=== PATIENT | male | born 1940 | race Caucasian/White ===

== ENCOUNTER → 2023-11-11 16:35 | Outpatient (REF) | payer MEDICARE, SELFPAY ==
[2023-11-11 17:48] LABS: PT 29.1 Sec (11.4-14.6)
[2023-11-11 17:49] LABS: APTT 48.3 Sec (23.4-35.0)
== END ==
LOC: REG 16:35
PROVIDERS: ATTENDING PHYSICIAN Internal Medicine Interventional Cardiology
DX: I48.91 Unspecified atrial fibrillation (principal); Z79.01 Long term (current) use of anticoagulants
CPT/HCPCS: 36415; 85610; 85730

== ENCOUNTER → 2023-12-08 15:26 | Outpatient (REF) | payer MEDICARE, SELFPAY ==
[2023-12-08 16:39] LABS: INR 3.24; PT 33.1 Sec (11.4-14.6)
== END ==
LOC: REG 15:26
PROVIDERS: ATTENDING PHYSICIAN Internal Medicine Interventional Cardiology
DX: I48.91 Unspecified atrial fibrillation (principal); Z79.01 Long term (current) use of anticoagulants
CPT/HCPCS: 36415; 85610; 85730

== ENCOUNTER → 2024-01-11 11:12 | Outpatient (REF) | payer MEDICARE, SELFPAY ==
[2024-01-11 11:59] LABS: PT 31.1 Sec (11.4-14.6)
[2024-01-11 12:00] LABS: APTT 49.8 Sec (23.4-35.0)
== END ==
LOC: REG 11:12
PROVIDERS: ATTENDING PHYSICIAN Internal Medicine Interventional Cardiology
DX: I48.91 Unspecified atrial fibrillation (principal); Z79.01 Long term (current) use of anticoagulants
CPT/HCPCS: 36415; 85610; 85730

== ENCOUNTER 2024-01-12 15:01 | Observation (INO) | payer MEDICARE, SELFPAY ==
[2024-01-12] VITALS (10 sets, daily range): BP systolic 132–174; BP diastolic 73–106; BMI 26.9
--- NOTE | 2024-01-12 09:08 | ED.GENMED ---
History of Present Illness
General
Chief Complaint: Fall
Time Seen by Provider: 01/12/24 08:54
History of Present Illness
History of Present Illness:
Patient is a 83-year-old male with history of dementia, A-fib, aortic valve replacement on Coumadin presenting to the emergency department with a fall. Per medics patient had a fall this morning. He was complaining of back pain. However patient
is uncooperative and agitated towards EMS so a limited history. is at bedside provides most of the history. She states for the past few days has been having lower back pain and is ambulating with unsteady gait. This morning he fell when he
was walking down the steps. He fell down 1 step. He landed on his back and his right side. He did hit his head. He did not lose consciousness. He is on Coumadin. Last INR was 3.0 yesterday. On my evaluation patient intermittently complaining
of back pain and knee pain.
Past History
Past History
ED Past Medical History: Arrthythmia and Other (Dementia)
ED Past Surgical History: Other (heart valve)
Social History
Tobacco: Non-smoker
Drug: None
Personal:
Living: with family
Employment: Employed
Phy Exam
Physical Exam
Physical Exam:
GENERAL: no acute distress, intermittently agitated
HEENT: atraumatic, extraocular muscles intact, no signs of entrapment, dentition intact, no other obvious trauma
NECK: no midline tenderness, normal range of motion, no other obvious trauma
CHEST: no tenderness, no flail segment, no subcutaneous emphysema, no other obvious trauma
LUNGS: clear to auscultation bilaterally
CARDIOVASCULAR: regular rate and rhythm
ABDOMEN: soft, non-tender, no masses, no other obvious trauma
PELVIS: stable, no obvious injury
EXTREMITIES: moving all extremities, tenderness at the right knee with movement distal pulses intact, no other obvious trauma
NEUROLOGIC: awake, alert, no focal deficits
Course
Orders/Labs/Results
Orders:
Orders
01/12/24 09:06
CT Cervical Spine W/o Iv Contr Urgent
Comment:
Reason For Exam: fall
CT Chest/abd/pel W Iv Cont Urgent
Comment:
Reason For Exam: fall, low back pain, on thinners
CT Head W/o Iv Contrast Urgent
Comment:
Reason For Exam: fall, on thinners
CR Knee- Right 4 Or More View* Urgent
Comment:
Reason For Exam: knee pain, fall
01/12/24 09:11
Case Management Consult ONCE
Case Management Consult: Intermediate Placement
01/12/24 09:28
Basic Metabolic Panel Urgent
Complete Blood Count/With Diff Urgent
Prothrombin Time Urgent
01/12/24 10:35
PT Consult [Pt Eval And Treat] Urgent
Activity Level: Ambulate
01/12/24 11:54
Urinalysis Reflex To Culture Urgent
Date Specimen was Collected: 01/12/24
Time Specimen was Collected: 11:46
01/12/24 12:20
Crisis Consult Urgent
Reason for Consult: placement 2/2 agitation
01/12/24 12:36
Haloperidol Lactate [Haldol] 1 mg IV NOW STA
01/12/24 12:47
Electrocardiogram (*1) Urgent
Reason for Study: QTc Monitoring
EKG- Treatment ONCE
01/12/24 13:08
Haloperidol Lactate [Haldol] 5 mg .ROUTE .STK-MED ONE
01/12/24 13:11
Haloperidol Lactate [Haldol] 1 mg IV NOW STA
Abnormal Lab Results
01/12/24
09:28
RBC 4.31 L 10^6/uL
(4.70-6.10)
MCH 31.8 H pg
(27.0-31.0)
MPV 11.1 H fL
(7.4-10.4)
Abs Immat Gran (auto) 0.1 H 10^3/uL
(0-0.05)
Absolute Neuts (auto) 8.1 H 10^3/uL
(1.4-6.5)
Absolute Lymphs (auto) 0.8 L 10^3/uL
(1.2-3.4)
Absolute Monos (auto) 0.8 H 10^3/uL
(0.1-0.6)
Immature Gran % 0.8 H %
(0-0.5)
Neutrophils % 82.2 H %
(42.2-75.2)
Lymphocytes % 8.4 L %
(20.5-51.1)
PT 32.3 H Sec
(11.4-14.6)
Glucose 102 H mg/dl
(70-99)
01/12/24 09:28
01/12/24 09:28
Vital Signs
Initial and Last Documented VS:
Initial Vital Signs
Temp Pulse Resp BP Pulse Ox
98.1 F 80 18 167/75 94
01/12/24 09:03 01/12/24 09:03 01/12/24 09:03 01/12/24 09:03 01/12/24 09:03
Last Documented Vital Signs
Temp Pulse Resp BP Pulse Ox
98.1 F 63 23 167/75 93
01/12/24 09:03 01/12/24 10:15 01/12/24 10:15 01/12/24 09:03 01/12/24 10:15
MDM/Problems Addressed
Differential Diagnosis Includes:
Patient is a 83-year-old man with history of dementia, A-fib, aortic valve replacement on Coumadin presenting to the emergency department after a witnessed fall this morning. Vitals unremarkable and exam does show tenderness at the right knee with
movement. He is complaining of back pain though no point tenderness although exam is difficult given dementia and intermittent agitation. Given that he is on Coumadin with a fall concern for traumatic injury such as intracranial hemorrhage versus
rib fractures versus compression fracture. Fall does sound mechanical in nature however will rule out UTI. He did not syncopized. Will check basic labs including INR. Will obtain richards scan given limited history and anticoagulation status. After
discussion with at bedside she does not feel comfortable taking him home given the ongoing agitation so we will discuss with case management
*Critical Care Note
Total Time (30-74mins, 75-104mins- exclusive of procedures): Not Applicable
Update Note
Update Note:
Blood work unremarkable. INR is within appropriate range. CT scans negative. I discussed with case management who unfortunately was having difficulty placing patient given no aggression. They did recommend psychiatric evaluation. Crisis did
evaluate patient had extensive discussion with family and unfortunately there is difficulty placing given the limitations. Recommending admission. I discussed with hospitalist who accepted patient to their service
ED Attending Note
-
Portions of this chart may have been created with voice recognition software.� Occasional wrong word or��sound alike� substitutions may have occurred due to the inherent limitations of voice recognition software.
Discharge Plan
Departure
Patient Disposition: Admit
Date of Disposition: 01/12/24
Time of Disposition: 13:20
Presentation/result/management discussed w/ accepting MD/DO: Hospitalist
Discharge Problem:
Dementia
Prescriptions:
No Action
lisinopril 20 MG tablet
20 mg PO DAILY
allopurinol 100 MG tablet
200 mg PO DAILY
niacin 250 MG tablet extended release
500 mg PO DAILY
aspirin 81 MG tablet,chewable
81 mg PO DAILY
enoxaparin 80 MG/0.8 ML syringe
80 mg SC Q12H
escitalopram oxalate 10 MG tablet
10 mg PO DAILY
Coumadin:
3 mg PO . DIRECTED
Folic Acid
PO DAILY
Referrals:
UNKNOWN - PT DOES,NOT KNOW [Family Provider] -
Discharge Date and Time
Print Language: MARSHALLESE
[2024-01-12 09:47] LABS: % Basophils 0.4 % (0-2); % Eosinophils 0.5 % (0-6); % Immature Granulocytes 0.8 % (0-0.5); % Lymphocytes 8.4 % (20.5-51.1); % Monocytes 7.7 % (1.7-9.3); % Neutrophils 82.2 % (42.2-75.2); Absolute Eosinophils 0.1 10^3/uL (0-0.7); Absolute Immature Granulocytes 0.1 10^3/uL (0-0.05); Absolute Lymphocytes 0.8 10^3/uL (1.2-3.4); Absolute Monocytes 0.8 10^3/uL (0.1-0.6); Absolute Neutrophils 8.1 10^3/uL (1.4-6.5); Hematocrit 39.7 % (39.0-52.0); Hemoglobin 13.7 g/dL (13.0-18.0); Mean Corp Hgb Conc. 34.5 g/dL (33.0-37.0); Mean Corpuscular Hgb 31.8 pg (27.0-31.0); Mean Corpuscular Volume 92.1 fL (80.0-94.0); Mean Platelet Volume 11.1 fL (7.4-10.4); Nucleated Red Blood Cells % 0 % (-); Platelet Count 177 10^3/uL (130-400); Red Blood Cell Count 4.31 10^6/uL (4.70-6.10); White Blood Cell Count 9.8 10^3/uL (4.8-10.8)
[2024-01-12 10:01] LABS: INR 3.15; PT 32.3 Sec (11.4-14.6)
[2024-01-12 10:11] LABS: Blood Urea Nitrogen 12 mg/dl (9-20); Calcium 9.7 mg/dl (8.4-10.2); Carbon Dioxide 27 mmol/L (22-30); Chloride 105 mmol/L (98-107); Estimated Creatinine Clearance 83 ml/min; Glucose 102 mg/dl (70-99); Sodium 140 mmol/L (135-145); eGFR > 60.00
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
[2024-01-12 12:03] LABS: Urine Albumin Negative (Neg - Trace); Urine Bilirubin Negative (Negative); Urine Character Clear (Clear); Urine Color Yellow; Urine Glucose Negative (Negative); Urine Ketone Negative (Negative); Urine Leukocyte Negative (Negative); Urine Nitrite Negative (Negative); Urine Occult Blood Negative (Negative); Urine Urobilinogen Negative (Neg - 1+)
[2024-01-12] MEDS: HALDOL 1 MG IV ×3 (12:46→15:06)
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
[2024-01-12] MEDS: SEROQUEL 25 MG PO ×2 (14:37→20:31)
[2024-01-12] MEDS: COUMADIN 1 MG PO (18:23)
[2024-01-12] MEDS: TYLENOL 1000 MG PO (21:02)
[2024-01-12] MEDS: BENADRYL 50 MG PO (21:03)
[2024-01-13 03:06] VITALS: BP 127/70
--- NOTE | 2024-01-13 03:32 | DOWNTIME ---
There was a [facility] Respiratory Therapy Aide Downtime on 01/13/2024 from 0100 to 01/13/2024 at 0300. Downtime documentation of patient's care, including medication administrations, has been reconciled in the electronic record per guidelines. Refer to the
patient's paper chart under the miscellaneous tab to see printed paper medication records and downtime forms.
[2024-01-13] MEDS: HALDOL 1 MG IV ×3 (05:26→21:26)
[2024-01-13 07:25] VITALS: BP 147/80
[2024-01-13] MEDS: FLORASTOR PO (09:01)
[2024-01-13] MEDS: SEROQUEL PO (09:01)
[2024-01-13] MEDS: SYNTHROID PO (09:01)
[2024-01-13] MEDS: IMODIUM PO (09:01)
[2024-01-13] MEDS: ZESTRIL PO (09:02)
[2024-01-13] MEDS: VITAMIN D3 (cholecalciferol) PO (09:02)
[2024-01-13] MEDS: ZYLOPRIM PO (09:03)
[2024-01-13] MEDS: ZOLOFT PO ×2 (09:03→10:58)
--- NOTE | 2024-01-13 09:36 | PTCARENOTE ---
pt refused all am medications despite multiple attempts. combative with staff and uncooperative.
--- NOTE | 2024-01-13 10:32 | W.PN.HOSP.TC ---
Today's Communication/Plan
-
see PN
CM for placement
Assessment / Plan
Assessment / Plan
83yo M with PMHx of [place].Leroy mechanical AVR, Afib, CAD s/p CABG, cardiomyopathy, gout, dementia, hypothyroidism, HTN, anxiety brought by his after he became agitated and combative at home, fell. UA and chest XR neg for infection. Imaging
negative for acute fractures. is attempting to place him, since he was very combative and she is not comfortable with taking him home.
A/P:
#Advanced dementia (unspecified) with behavioral disturbances
haldol
Psych consult
Palliative approach might be appropriate
#Fall without LOC with chronic ambulatory dysfunction
CT chest/abd/pelvis, head CT, cervical spine CT without fractures or bleeding
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
#Mechanical AVR
#paroxysmal Afib
#CAD s/p CABG
#cardiomyopathy, chronic HFrEF
#Gout
cont home meds
DVT ppx on Coumadin
DNR/DNI
I have spent at least 58min reviewing chart, test results, communiction with consultants and direct patient care
Anticipated Discharge: > 48 hours
Subjective/Interval History
-
Date of Service: January 13, 2024
Objective Data
-
Labs:
Laboratory Results
01/13/24
06:00
WBC Pending
Hgb Pending
Hct Pending
Plt Count Pending
Sodium Pending
Potassium Pending
Chloride Pending
Carbon Dioxide Pending
BUN Pending
Creatinine Pending
Glucose Pending
Calcium Pending
Vital Signs:
Vital Signs
Temp Pulse Resp BP Pulse Ox
98.5 F 73 16 147/80 93
01/13/24 07:25 01/13/24 07:25 01/13/24 07:25 01/13/24 07:25 01/13/24 07:25
I&O
01/12/24 01/13/24 01/14/24
06:59 06:59 06:59
Intake Total 240 / 240
Balance 240 / 240
Review of Systems
-
Unable to obtain full review of systems at this time due to: Dementia
History Source: Patient
All other systems: Reviewed and negative
Physical Exam
-
General: No Apparent Distress
HEENT: Moist Mucous Membranes
Respiratory: Clear to Auscultation
Cardiac: Irregular Rhythm and Other (mechanical click)
Musculoskeletal: No Clubbing, No Cyanosis and No Edema
Skin: Warm
Neuro: Awake and Alert
Psych: Calm and Apparent Dementia
[2024-01-13 10:53] LABS: % Basophils 0.3 % (0-2); % Eosinophils 0.3 % (0-6); % Immature Granulocytes 0.4 % (0-0.5); % Lymphocytes 7.6 % (20.5-51.1); % Monocytes 7.3 % (1.7-9.3); % Neutrophils 84.1 % (42.2-75.2); Absolute Immature Granulocytes 0.1 10^3/uL (0-0.05); Absolute Lymphocytes 0.9 10^3/uL (1.2-3.4); Absolute Monocytes 0.9 10^3/uL (0.1-0.6); Absolute Neutrophils 10.2 10^3/uL (1.4-6.5); Hematocrit 42.1 % (39.0-52.0); Hemoglobin 14.6 g/dL (13.0-18.0); Mean Corp Hgb Conc. 34.7 g/dL (33.0-37.0); Mean Corpuscular Hgb 31.5 pg (27.0-31.0); Mean Corpuscular Volume 90.7 fL (80.0-94.0); Nucleated Red Blood Cells % 0 % (-); Platelet Count 209 10^3/uL (130-400); Red Blood Cell Count 4.64 10^6/uL (4.70-6.10); White Blood Cell Count 12.1 10^3/uL (4.8-10.8)
[2024-01-13] MEDS: ZESTRIL 20 MG PO (10:58)
[2024-01-13] MEDS: SYNTHROID 25 MCG PO (10:58)
[2024-01-13] MEDS: FLORASTOR 250 MG PO (10:58)
[2024-01-13] MEDS: IMODIUM 2 MG PO (10:58)
[2024-01-13] MEDS: SEROQUEL 25 MG PO ×2 (10:58→17:55)
[2024-01-13] MEDS: ZYLOPRIM 300 MG PO (10:58)
--- NOTE | 2024-01-13 10:59 | PTCARENOTE ---
pt did finally accept AM medications with encouragement from psych
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
[2024-01-13 11:36] LABS: Blood Urea Nitrogen 7 mg/dl (9-20); Calcium 9.4 mg/dl (8.4-10.2); Carbon Dioxide 23 mmol/L (22-30); Chloride 104 mmol/L (98-107); Estimated Creatinine Clearance 97 ml/min; Glucose 103 mg/dl (70-99); Potassium 3.6 mmol/L (3.5-5.1); Sodium 140 mmol/L (135-145); eGFR > 60.00
[2024-01-13 11:40] VITALS: BP 149/73
--- NOTE | 2024-01-13 11:41 | CM ---
Addendum entered by Helga De La Vega 01/13/24 17:08:
referrals sent to [facility] facilities as below. CM awaiting responses. OBS/Christina form completed and on chart.
Original Note:
Patient seen at bedside with patient present. Patient indicated that her plan is for [facility] to go [facility]. Psych reviewed options with CM; [facility]. Patient has
Living Will and POA documentation. CM provided OBS/CHRISTINA form and signed form to be placed in Chart. CM will send referrals to above facilities. CM will continue to follow for discharge planning needs.
[facility]
[2024-01-13 12:25] VITALS: BP 130/76; PULSE 74; O2SAT 94
[2024-01-13] MEDS: ATIVAN 1 MG IV (14:10)
--- NOTE | 2024-01-13 14:19 | PTCARENOTE ---
pt is combative, yelling and pulling at restraints. reorientation unsuccessful see MAR
[2024-01-13 15:30] VITALS: BP 146/82
[2024-01-13] MEDS: COUMADIN 3 MG PO (17:54)
[2024-01-13] MEDS: FLUSH (NSS) 1 FLUSH IV (21:27)
[2024-01-13] MEDS: TYLENOL PO (22:00)
[2024-01-13] MEDS: MELATONIN PO (22:00)
[2024-01-13 23:35] VITALS: BP 153/80
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
[2024-01-14] MEDS: SEROQUEL PO (02:24)
[2024-01-14 03:31] VITALS: BP 166/90
[2024-01-14] MEDS: ATIVAN 1 MG IV (04:11)
[2024-01-14] MEDS: NSS (PRESERVATIVE FREE) 0.5 ML IV (04:12)
[2024-01-14] MEDS: FLUSH (NSS) 2 FLUSH IV (04:13)
--- NOTE | 2024-01-14 04:21 | PTCARENOTE ---
@0355; Pt yelling from the room,' God dam it ,get me out of here.'Pt awake,disoriented x3 and saturated of urine.Pt only taking small sips of darlene radha throughout the night.Attempted to turn pt,place a pillow through out the night but he wiggles
off pillow.Pt required 4 staff members to change his attend due to his agitation.Pt yelling,'Get me out of these punching gloves.Your all getting a deduction in your next pay check.' Pt continues to pull again on his restraints.@0411;Ativan 1 mg IV
administered for agitation.
[2024-01-14 06:33] LABS: INR 3.46; PT 35.4 Sec (11.4-14.6)
[2024-01-14 07:00] VITALS: BP 137/94
--- NOTE | 2024-01-14 07:23 | PTCARENOTE ---
@0638;TT [facility] Joshi ,via TT , with photo results of 0600 EKG .
[2024-01-14 08:02] LABS: Folate > 20.0 ng/ml (2.76-20); Vitamin B12 771 pg/ml (239-931)
[2024-01-14] MEDS: SEROQUEL 25 MG PO ×2 (08:38→19:15)
[2024-01-14] MEDS: FLORASTOR 250 MG PO (08:38)
[2024-01-14] MEDS: SYNTHROID 25 MCG PO (08:38)
[2024-01-14] MEDS: ZOLOFT 150 MG PO (08:39)
[2024-01-14] MEDS: VITAMIN D3 (cholecalciferol) 25 MCG PO (08:39)
[2024-01-14] MEDS: ZESTRIL 20 MG PO (08:42)
[2024-01-14] MEDS: IMODIUM 2 MG PO (08:43)
[2024-01-14] MEDS: ZYLOPRIM 300 MG PO (08:45)
--- NOTE | 2024-01-14 10:09 | W.PN.HOSP.TC ---
Today's Communication/Plan
-
pending placement
Assessment / Plan
Assessment / Plan
83yo M with PMHx of [employer] mechanical AVR, Afib, CAD s/p CABG, cardiomyopathy, gout, dementia, hypothyroidism, HTN, anxiety brought by his after he became agitated and combative at home, fell. UA and chest XR neg for infection. Imaging
negative for acute fractures. is attempting to place him, since he was very combative and she is not comfortable with taking him home.
A/P:
#Advanced dementia (unspecified) with behavioral disturbances
haldol
Psych consult: adjusting meds
Haldol/Ativan for agitation
CM for placement
Palliative approach might be appropriate
#minimal leukocytosis on admission
UA not indicative of UTI
no respiratory symptoms, no pneumonia or infection concern on CT c/a/p
monitor
#Fall without LOC with chronic ambulatory dysfunction
CT chest/abd/pelvis, head CT, cervical spine CT without fractures or bleeding
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
#Mechanical AVR
#paroxysmal Afib
#CAD s/p CABG
#cardiomyopathy, chronic HFrEF
#Gout
cont home meds
target INR 2.5-3.5
DVT ppx on Coumadin
DNR/DNI
I have spent at least 58min reviewing chart, test results, communication with consultants and direct patient care
Anticipated Discharge: > 48 hours
Subjective/Interval History
-
Date of Service: January 14, 2024
Objective Data
-
Labs:
Laboratory Results
01/14/24
06:15
PT 35.4 H
INR 3.46
Vital Signs:
Vital Signs
Temp Pulse Resp BP Pulse Ox
98.4 F 70 17 137/94 92
01/14/24 07:00 01/14/24 08:42 01/14/24 07:00 01/14/24 08:42 01/14/24 07:00
I&O
01/13/24 01/14/24 01/15/24
06:59 06:59 06:59
Intake Total 240 / 240 460 / 460
Balance 240 / 240 460 / 460
Review of Systems
-
Unable to obtain full review of systems at this time due to: Dementia
History Source: Patient
All other systems: Reviewed and negative
Physical Exam
-
General: No Apparent Distress
HEENT: Normocephalic
Cardiac: Regular Rhythm and Murmur (mechanical)
GI: Soft
Musculoskeletal: No Clubbing, No Cyanosis and No Edema
Skin: Warm
Neuro: Awake, Alert, Oriented and AO x 3
Psych: Calm
--- NOTE | 2024-01-14 11:36 | W.PN.UPDATE ---
Update Note
Progress Note Update
patient seen chart reviewed. spoke with nursing and with cm. patient has continued to struggle with agitation. see nursing notes. earlier today he was very agitated . at present he is in soft restraints and relatively quiet. he keeps asking for
his . i explained to him that i had spoken to cm and been informed that will be in shortly. he did calm down and said he was 'exhausted'. asked him if i could lower the shades and perhaps he could sleep. he said 'maybe' and when the
shades were lowered he did close his eyes and seem to relax. reassured him would be here soon. i will come down and speak to her when she gets here. discussed with cm the options re [facility]. there are beds but apparently
interested in other placements. not clear whether that would be possible in the short term. have increased seroquel to 25 mg q bid and 50 mg q hs. the late evenings and nights seem to pose the biggest challenge for mr mckenna. will follow
[2024-01-14] MEDS: HALDOL 1 MG IV (14:18)
--- NOTE | 2024-01-14 14:35 | PTCARENOTE ---
pt agitated, telling staff to 'leave him alone, get out of his backside' pt was soiled and needed changing. Using profanity toward staff and . Haldol 0.2ml given, Dr Grande notified, will continue plan of care
[2024-01-14 15:00] VITALS: BP 161/93
--- NOTE | 2024-01-14 17:20 | CM ---
met with patient and evonne at bedside.i called [facility] and there were no beds. i faxed clinicals to [facility] and they made a declined patient even though i told them [facility] then a [facility]
unit.[facility] had accepted patient but did not want to to into the medical center.[facility] had no beds.
patient was accepted to [facility] and is okay with facility.i spoke with kaci quevedo [phone] in [place] who wanted labs and imaging faxed to him,copy of poa and a covid test before patient is adm.test sent to attending who will
order covid tomorrow am.
Plan dc to [facility] unit once covid comes back negative.
phone number for report is [phone] and fax number is [phone].
[2024-01-14] MEDS: COUMADIN 3 MG PO (18:00)
[2024-01-14] MEDS: TYLENOL 1000 MG PO (19:15)
[2024-01-14 19:18] VITALS: BP 154/82
--- NOTE | 2024-01-14 20:55 | PTCARENOTE ---
@2000;Received pt awake and restless.Pt oriented x1 to self only tonight. Pt was restless,agitated ,confused ,pulling off tele leads and attends.Pt unable to follow verbal redirection but was able to take his Seroquel 25mg po and Tylenol in apple
sauce.Pt declined to drink but did eat 1/2 cup of apple sauce that was feed to him by this RN.Pt became agitated when attempting to fix tele leads and adjusting his attends.Pt does not liked to be touched with pt care.Pt frequently yells ,'Leave me
alone'.Pt remains in restraints for pt safety.Attempted to place pillow under pt with turn but pt began yelling ,'leave me alone'.
[2024-01-14] MEDS: MELATONIN 5 MG PO (21:28)
[2024-01-14] MEDS: SEROQUEL 50 MG PO (21:30)
[2024-01-14 23:26] VITALS: BP 119/71
[2024-01-14 23:34] VITALS: BP 119/71
[2024-01-15 03:29] VITALS: BP 133/78
--- NOTE | 2024-01-15 05:12 | PTCARENOTE ---
Pt sleeping on and off this shift.When attempting to turn pt on his side with pillow,he wakes up yelling ,'Stop,leave me alone'.Pt remains oriented x1 to self. Pt has difficulty with verbal redirection and may need to hear the request several
times.Pt remains incontinent.Bed alarm maintained with restraints for pt's confusion and safety.
[2024-01-15 05:50] LABS: INR 4.33; PT 42.2 Sec (11.4-14.6)
[2024-01-15 05:53] LABS: % Basophils 0.5 % (0-2); % Eosinophils 2.4 % (0-6); % Immature Granulocytes 0.4 % (0-0.5); % Lymphocytes 13.1 % (20.5-51.1); % Monocytes 11.5 % (1.7-9.3); % Neutrophils 72.1 % (42.2-75.2); Absolute Basophils 0.1 10^3/uL (0-0.2); Absolute Eosinophils 0.2 10^3/uL (0-0.7); Absolute Lymphocytes 1.3 10^3/uL (1.2-3.4); Absolute Monocytes 1.1 10^3/uL (0.1-0.6); Hemoglobin 14.5 g/dL (13.0-18.0); Mean Corp Hgb Conc. 34.5 g/dL (33.0-37.0); Mean Corpuscular Hgb 32.7 pg (27.0-31.0); Mean Corpuscular Volume 94.6 fL (80.0-94.0); Nucleated Red Blood Cells % 0 % (-); Platelet Count 193 10^3/uL (130-400); Red Blood Cell Count 4.44 10^6/uL (4.70-6.10); Red Cell Dist. Width 12.9 % (11.5-14.5); White Blood Cell Count 9.8 10^3/uL (4.8-10.8)
[2024-01-15] MEDS: SYNTHROID 25 MCG PO (06:02)
[2024-01-15 06:46] LABS: ALT (SGPT) 21 U/L (0-50); AST (SGOT) 44 U/L (17-59); Albumin 3.7 g/dl (3.5-5.0); Alkaline Phosphatase 83 U/L (38-126); Blood Urea Nitrogen 9 mg/dl (9-20); Calcium 9.4 mg/dl (8.4-10.2); Carbon Dioxide 27 mmol/L (22-30); Chloride 104 mmol/L (98-107); Estimated Creatinine Clearance 72 ml/min; Glucose 101 mg/dl (70-99); Potassium 3.4 mmol/L (3.5-5.1); Sodium 144 mmol/L (135-145); Total Bilirubin 0.9 mg/dl (0.2-1.3); Total Protein 5.8 g/dl (6.3-8.2); eGFR > 60.00
[2024-01-15 07:00] VITALS: BP 147/88
[2024-01-15 08:04] LABS: COVID-19 Antigen Negative (Negative)
[2024-01-15] MEDS: ZOLOFT 150 MG PO (08:22)
[2024-01-15] MEDS: FLORASTOR 250 MG PO (08:23)
[2024-01-15] MEDS: VITAMIN D3 (cholecalciferol) 25 MCG PO (08:23)
[2024-01-15] MEDS: ZYLOPRIM 300 MG PO (08:24)
[2024-01-15] MEDS: ZESTRIL 20 MG PO (08:25)
[2024-01-15] MEDS: SEROQUEL 25 MG PO (08:25)
[2024-01-15] MEDS: IMODIUM 2 MG PO (08:25)
[2024-01-15] MEDS: FLOMAX 0.4 MG PO (08:52)
--- NOTE | 2024-01-15 10:46 | W.PN.UPDATE ---
Update Note
Progress Note Update
reviewed chart spoke to nursing. did not see patient. mr mckenna is being transferred to [facility] psychiatric unit today. he has not required prn for agitation today and nursing tells me at the moment he is out of restraints.
--- NOTE | 2024-01-15 10:50 | W.PN.HOSP.TC ---
Today's Communication/Plan
-
D/C
Assessment / Plan
Assessment / Plan
83yo M with PMHx of [employer] mechanical AVR, Afib, CAD s/p CABG, cardiomyopathy, gout, dementia, hypothyroidism, HTN, anxiety brought by his after he became agitated and combative at home, fell. UA and chest XR neg for infection. Imaging
negative for acute fractures. is attempting to place him, since he was very combative and she is not comfortable with taking him home.
Accidentally found ascending thoracic aneurism 4.5cm recommended to follow with PCP in 6mo with repeated imaging. Had episode of intermittent urinary retention - started on Tamsulosin/finasteride. Urinated and had BM on the day of D/C to inpatient
psychiatry unit. Accepting facility to be instructed to Hold Coumadin tonight, restart with lower dose on the next day and follow INR in 3-4 days
A/P:
#Advanced dementia (unspecified) with behavioral disturbances
haldol
Psych consult: adjusting meds
Haldol/Ativan for agitation
CM for placement
Palliative approach might be appropriate
#minimal leukocytosis on admission
UA not indicative of UTI
no respiratory symptoms, no pneumonia or infection concern on CT c/a/p
monitor
#Supratherapeutic INR
Hold Coumadin tonight, restart with lower dose on the next day and follow INR in 3-4 days
#Fall without LOC with chronic ambulatory dysfunction
CT chest/abd/pelvis, head CT, cervical spine CT without fractures or bleeding
#Intermittent urinary retention
Tamsulosin/Finasteride
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
#Mechanical AVR
#paroxysmal Afib
#CAD s/p CABG
#cardiomyopathy, chronic HFrEF
#Gout
cont home meds
target INR 2.5-3.5
follow up with PCP for aneurism monitoring
DVT ppx on Coumadin
DNR/DNI
I have spent at least 58min reviewing chart, test results, communication with consultants and direct patient care
Anticipated Discharge: Today
Subjective/Interval History
-
Date of Service: January 15, 2024
Objective Data
-
Labs:
Laboratory Results
01/15/24
05:29
WBC 9.8
Hgb 14.5
Hct 42.0
Plt Count 193
PT 42.2 H
INR 4.33
Sodium 144
Potassium 3.4 L
Chloride 104
Carbon Dioxide 27
BUN 9
Creatinine 0.8
Glucose 101 H
Calcium 9.4
Total Bilirubin 0.9
AST 44
ALT 21
Alkaline Phosphatase 83
Vital Signs:
Vital Signs
Temp Pulse Resp BP Pulse Ox
98.1 F 73 17 147/88 93
01/15/24 07:00 01/15/24 08:25 01/15/24 07:00 01/15/24 08:25 01/15/24 07:00
I&O
01/14/24 01/15/24 01/16/24
06:59 06:59 06:59
Intake Total 460 / 460 400 / 400
Output Total 01414 / 71058
Balance 460 / 460 -78331 / -56306
Review of Systems
-
Unable to obtain full review of systems at this time due to: Dementia
History Source: Patient
Physical Exam
-
General: No Apparent Distress
HEENT: Normocephalic
Respiratory: Clear to Auscultation
Neuro: Awake and Alert
Psych: Calm and Apparent Dementia
--- NOTE | 2024-01-15 11:00 | W.DCSUMMARY ---
Discharge Summary
Discharge Data
Date of Admission: 01/12/24
Date of Discharge: 01/15/24
-
Pending Results: No
Hospital Course
83yo M with PMHx of [employer] mechanical AVR, Afib, CAD s/p CABG, cardiomyopathy, gout, dementia, hypothyroidism, HTN, anxiety brought by his after he became agitated and combative at home, fell. UA and chest XR neg for infection. Imaging
negative for acute fractures. is attempting to place him, since he was very combative and she is not comfortable with taking him home.
Accidentally found ascending thoracic aneurism 4.5cm recommended to follow with PCP in 6mo with repeated imaging. Had episode of intermittent urinary retention - started on Tamsulosin/finasteride. Urinated and had BM on the day of D/C to inpatient
psychiatry unit. Accepting facility to be instructed to Hold Coumadin tonight, restart with lower dose on the next day and follow INR in 3-4 days
I have spent at least 37min preparing d/c
Patient was managed for:
#Advanced dementia (unspecified) with behavioral disturbances
#minimal leukocytosis on admission
#Supratherapeutic INR
#Fall without LOC with chronic ambulatory dysfunction
#Intermittent urinary retention
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
#Mechanical AVR
#paroxysmal Afib
#CAD s/p CABG
#cardiomyopathy, chronic HFrEF
#Gout
Discharge Plan
-
Patient Disposition: Other
Discharge Diagnosis/Procedures: Acute inpatient psychiatry
Diet: Other diet
Additional Diets: Warfarin vit K restricted
Activity: As tolerated
Driving Restrictions: As prior to admission
Blood Work: INR in 3-4 days
Activity Restrictions/Additional Instructions:
Skip Coumadin dose on 01/15/24, start prescribed amount on 01/16/24
US ascending aorta in 6 months recommended with family doctor
Referrals:
PRIVATE,PHYSICIAN [Family Provider] -
Prescriptions:
New
tamsulosin 0.4 mg Capsule
0.4 mg PO DAILY Qty: 30 0RF
melatonin 5 mg Tablet
5 mg PO HS Qty: 30 0RF
quetiapine 25 mg Tablet
50 mg PO HS Qty: 30 0RF
quetiapine 25 mg Tablet
25 mg PO BID Qty: 60 0RF
warfarin [Jantoven] 2.5 mg Tablet
2.5 mg PO SuMoWeThFr@1800 Qty: 3 0RF
warfarin [Jantoven] 1 mg Tablet
1 mg PO TuSa@1800 Qty: 2 0RF
finasteride 5 mg Tablet
5 mg PO DAILY Qty: 30 0RF
Continued
5mthf Plus Vitamin B12
1 tab PO DAILY
lisinopril 20 mg Tablet
20 mg PO DAILY
sertraline 100 mg Tablet
150 mg PO DAILY
loperamide 2 mg Tablet
2 mg PO DAILY
levothyroxine [Synthroid] 25 mcg Tablet
25 mcg PO DAILY
allopurinol 300 mg Tablet
300 mg PO DAILY
Saccharomyces boulardii [Florastor] 250 mg Capsule
250 mg PO DAILY
cholecalciferol (vitamin D3) [Vitamin D3] 25 mcg (1,000 unit) Tablet
25 mcg PO DAILY
vitamins A,C,J-oehl-vfqynw 4,296 mcg-226 mg-90 mg Capsule
1 cap PO BID
Discontinued
Anxiocalm
2 cap PO DAILY
warfarin 3 mg Tablet
3 mg PO SUMOWETHFR
warfarin 1 mg Tablet
1 mg PO TUSA
diphenhydramine-acetaminophen [Tylenol PM Extra Strength] 25-500 mg Tablet
2 tab PO HS
colestipol 1 gram Tablet
1 g PO DAILYPRN PRN (Reason: diarrhea)
riboflavin (vitamin B2) 5 mg Tablet
5 mg PO DAILY
[place] 3 Capsule
1,000 mg PO DAILY
Cbd 10mg Plus Thc 17.2mg
1 cap PO HS@1630
Holozyme
1 cap PO DAILY
Kydophilus
1 cap PO DAILY
Discharge Orders:
Discharge Patient (As Directed); Ordered 01/15/24
Ordered By: Freddy Grande
Discharge Date and Time
Print Language: CAPE VERDEAN
--- NOTE | 2024-01-15 11:08 | CM ---
met with patient and at bedside.refaxed blood work,urinalysis and negative covid test to [facility].i will arrange ambulance transport to facility. signed imm letter.
phone number to call report is [phone] and fax number is [phone].
[2024-01-15 11:15] VITALS: BP 104/58
[2024-01-15] MEDS: ATIVAN 1 MG IV (13:48)
[2024-01-15] MEDS: STERILE WATER FOR INJECTION 2.1 ML IM (14:47)
[2024-01-15] MEDS: ZYPREXA 5 MG IM (14:48)
[2024-01-15 16:20] VITALS: BP 126/90
== END 2024-01-15 16:45 ==
LOC: 3 WEST ACU 15:01
PROVIDERS: Clinical Nurse Specialist Family Health; Psychiatry & Neurology Psychiatry; ADMITTING PHYSICIAN Internal Medicine; ATTENDING PHYSICIAN Internal Medicine; CONSULT PHYSICIAN Psychiatry & Neurology Psychiatry; EMERGENCY PHYSICIAN Student in an Organized Health Care Education/Training Program
DX: F03.911 Unspecified dementia, unspecified severity, with agitation (principal); F03.94 Unspecified dementia, unspecified severity, with anxiety; F03.93 Unspecified dementia, unspecified severity, with mood disturbance; F03.918 Unspecified dementia, unspecified severity, with other behavioral disturbance; I48.21 Permanent atrial fibrillation; R33.9 Retention of urine, unspecified; M54.50 Low back pain, unspecified; M54.9 Dorsalgia, unspecified; W10.9XXA Fall (on) (from) unspecified stairs and steps, initial encounter; Y93.01 Activity, walking, marching and hiking; Y92.9 Unspecified place or not applicable; I25.10 Atherosclerotic heart disease of native coronary artery without angina pectoris; E03.9 Hypothyroidism, unspecified; I11.0 Hypertensive heart disease with heart failure; E78.5 Hyperlipidemia, unspecified; R79.1 Abnormal coagulation profile; I50.22 Chronic systolic (congestive) heart failure; M50.30 Other cervical disc degeneration, unspecified cervical region; M17.11 Unilateral primary osteoarthritis, right knee; M95.4 Acquired deformity of chest and rib; I42.9 Cardiomyopathy, unspecified; M10.9 Gout, unspecified; R16.1 Splenomegaly, not elsewhere classified; I71.21 Aneurysm of the ascending aorta, without rupture; M11.261 Other chondrocalcinosis, right knee; M47.812 Spondylosis without myelopathy or radiculopathy, cervical region; K52.9 Noninfective gastroenteritis and colitis, unspecified; F32.A Depression, unspecified; G47.00 Insomnia, unspecified; Z66 Do not resuscitate; Z75.1 Person awaiting admission to adequate facility elsewhere; Z85.828 Personal history of other malignant neoplasm of skin; Z90.49 Acquired absence of other specified parts of digestive tract; Z79.890 Hormone replacement therapy; Z79.01 Long term (current) use of anticoagulants; Z95.2 Presence of prosthetic heart valve; Z95.1 Presence of aortocoronary bypass graft; Z95.0 Presence of cardiac pacemaker; Z78.1 Physical restraint status; Z11.52 Encounter for screening for COVID-19
CPT/HCPCS: 70450; 71260; 72125; 73564; 74177; 80048; 80053; 81003; 82607; 82746; 85025; 85610; 87811; 93005; 96374; 96376; 97116; 97166; 97530; 99285; J2358; Q9967